=== PATIENT | female | born 1950 | race Caucasian/White ===

== ENCOUNTER → 2018-07-26 09:18 | Outpatient (CLI) | payer OTHER ==
[~2018-07-26 09:18] MED LIST: AMOXICILLIN875 MG PO; ANTIVERT12.5 MG PO; CEFOXITIN IV; FIORICET TABLET1 TAB PO; ISORDIL10 MG PO; METOCLOPRAMIDE10 MG PO; TAGAMET300 MG PO; VASOTEC10 MG NGT
== END | disposition home or self-care (01) ==
LOC: LAB 09:18
DX: R10.84 Generalized abdominal pain (principal); Z51.81 Encounter for therapeutic drug level monitoring

== ENCOUNTER 2018-07-30 07:46 | Outpatient (CLI) | payer OTHER | END 2018-07-30 07:55 | disposition home or self-care (01) | LOC: TOM 07:46 | DX: R10.84 Generalized abdominal pain (principal) | CPT/HCPCS: 74177; Q9965 ==

== ENCOUNTER 2019-05-30 08:41 | Outpatient (CLI) | payer OTHER | END 2019-05-30 08:43 | disposition home or self-care (01) | LOC: NUCLEAR 08:41 | DX: M81.0 Age-related osteoporosis without current pathological fracture (principal) ==

== ENCOUNTER 2019-10-20 18:29 | Emergency (ER) | payer OTHER ==
[~2019-10-20] VITALS: Ht 160 cm; Wt 63.5 kg
[2019-10-20] MEDS ORDERED: ADULT LOW DOSE81 M1 PO (19:18)
[2019-10-20] MEDS ORDERED: LANTUS SOL100 UNIT/1 SQ (19:18)
== END 2019-10-20 20:58 | disposition home or self-care (01) ==
LOC: ER 18:29
DX: S20.222A Contusion of left back wall of thorax, initial encounter (principal); M54.89 Other dorsalgia; W10.8XXA Fall (on) (from) other stairs and steps, initial encounter; Y93.89 Activity, other specified; Y92.019 Unspecified place in single-family (private) house as the place of occurrence of the external cause; Y99.8 Other external cause status

== ENCOUNTER 2020-10-05 08:41 | Outpatient (CLI) | payer OTHER ==
[~2020-10-05 08:41] MED LIST changes: +ADULT LOW DOSE81 M1 PO; +LANTUS SOL100 UNIT/1 SQ
== END 2020-10-05 08:47 | disposition home or self-care (01) ==
LOC: RAD 08:41
PROVIDERS: ATTEND Specialist
DX: R07.89 Other chest pain (principal)

== ENCOUNTER 2020-10-14 12:18 | Outpatient (CLI) | payer OTHER | END 2020-10-14 12:32 | disposition home or self-care (01) | LOC: MAMO-SONO 12:18 | PROVIDERS: ATTEND Internal Medicine Cardiovascular Disease | DX: R92.1 Mammographic calcification found on diagnostic imaging of breast (principal); N64.59 Other signs and symptoms in breast; Z12.31 Encounter for screening mammogram for malignant neoplasm of breast ==

== ENCOUNTER → 2021-02-11 | Outpatient (CLI) | payer OTHER | END | disposition home or self-care (01) | LOC: LAB 06:18 | PROVIDERS: ATTEND Specialist | DX: E11.65 Type 2 diabetes mellitus with hyperglycemia (principal); E11.21 Type 2 diabetes mellitus with diabetic nephropathy; N25.81 Secondary hyperparathyroidism of renal origin ==

== ENCOUNTER → 2021-02-14 07:49 | Outpatient (CLI) | payer OTHER | END | disposition home or self-care (01) | LOC: LAB 07:49 | PROVIDERS: ATTEND Specialist | DX: E11.65 Type 2 diabetes mellitus with hyperglycemia (principal); E11.21 Type 2 diabetes mellitus with diabetic nephropathy; N25.81 Secondary hyperparathyroidism of renal origin ==

== ENCOUNTER 2021-02-14 08:12 | Outpatient (CLI) | payer OTHER | END 2021-02-14 08:16 | disposition home or self-care (01) | LOC: TOM 08:12 | PROVIDERS: ATTEND Specialist | DX: K57.32 Diverticulitis of large intestine without perforation or abscess without bleeding (principal) ==

== ENCOUNTER 2021-03-28 08:30 | Outpatient (CLI) | payer OTHER | END 2021-03-28 08:31 | disposition home or self-care (01) | LOC: NUCLEAR 08:30 | PROVIDERS: ATTEND Specialist | DX: D44.2 Neoplasm of uncertain behavior of parathyroid gland (principal) | CPT/HCPCS: 78070; A9500 ==

== ENCOUNTER 2021-05-02 07:56 | Outpatient (CLI) | payer OTHER | END 2021-05-02 13:53 | disposition home or self-care (01) | LOC: LAB 07:56 | PROVIDERS: ATTEND Specialist | DX: E11.65 Type 2 diabetes mellitus with hyperglycemia (principal); E11.21 Type 2 diabetes mellitus with diabetic nephropathy; D64.9 Anemia, unspecified ==

== ENCOUNTER → 2021-05-04 08:55 | Outpatient (CLI) | payer OTHER ==
[~2021-05-04 08:55] MED LIST changes: +ADULT LOW DOSE81 M1; +ALENDRONATE SOD70 MG; +AMLODIPINE BESY10 MG; +ATORVASTATIN CA20 MG; +CANDESARTAN CIL32 MG; +GABAPENTIN100 M2; +GLIMEPIRIDE4 M1; +HUMALOG100 UNIT/2; +HUMULIN N100 UNIT/2; +METFORMIN HCL1000 M3
== END | disposition home or self-care (01) ==
LOC: LAB 08:55
PROVIDERS: ATTEND Specialist
DX: E11.65 Type 2 diabetes mellitus with hyperglycemia (principal); E11.21 Type 2 diabetes mellitus with diabetic nephropathy; D64.9 Anemia, unspecified

== ENCOUNTER 2021-06-30 08:00 | Outpatient (CLI) | payer OTHER ==
[~2021-06-30 08:00] MED LIST changes: -ADULT LOW DOSE81 M1; -ALENDRONATE SOD70 MG; -AMLODIPINE BESY10 MG; -ATORVASTATIN CA20 MG; -CANDESARTAN CIL32 MG; -GABAPENTIN100 M2; -GLIMEPIRIDE4 M1; -HUMALOG100 UNIT/2; -HUMULIN N100 UNIT/2; -METFORMIN HCL1000 M3
== END 2021-06-30 08:30 | disposition home or self-care (01) ==
LOC: PPH VACUNA 08:00
DX: Z23 Encounter for immunization (principal)

== ENCOUNTER 2021-07-28 11:34 | Inpatient (IN) | payer OTHER ==
[~2021-07-28] VITALS: Ht 152.4 cm; Wt 63.5 kg
[2021-07-28] MEDS ORDERED: HUMALOG100 UNIT/2 (12:17)
[2021-07-29] MEDS ORDERED: ADULT LOW DOSE81 M1 (10:10)
[2021-07-29] MEDS ORDERED: GLIMEPIRIDE4 M1 (10:10)
[2021-07-29] MEDS ORDERED: CANDESARTAN CIL32 MG (10:10)
[2021-07-29] MEDS ORDERED: METFORMIN HCL1000 M3 (10:10)
[2021-07-29] MEDS ORDERED: GABAPENTIN100 M2 (10:10)
[2021-07-29] MEDS ORDERED: ATORVASTATIN CA20 MG (10:10)
[2021-07-29] MEDS ORDERED: AMLODIPINE BESY10 MG (10:10)
[2021-07-29] MEDS ORDERED: HUMULIN N100 UNIT/2 (10:11)
[2021-07-29] MEDS ORDERED: ALENDRONATE SOD70 MG (10:11)
== END 2021-08-03 16:00 | DRG 202 ==
LOC: ER 11:34 → MEDJ 18:13
PROVIDERS: ADMIT Specialist; ATTEND Specialist
DX: J45.902 Unspecified asthma with status asthmaticus (principal); E11.00 Type 2 diabetes mellitus with hyperosmolarity without nonketotic hyperglycemic-hyperosmolar coma (NKHHC); N17.8 Other acute kidney failure; E87.5 Hyperkalemia; E86.0 Dehydration; Z91.14 Patient's other noncompliance with medication regimen; Z20.822 Contact with and (suspected) exposure to COVID-19; Z79.4 Long term (current) use of insulin

== ENCOUNTER 2021-10-11 06:27 | Emergency (ER) | payer OTHER ==
[~2021-10-11] VITALS: Ht 160 cm; Wt 61.7 kg
[~2021-10-11 06:27] MED LIST changes: +ADULT LOW DOSE81 M1; +ALENDRONATE SOD70 MG; +AMLODIPINE BESY10 MG; +ATORVASTATIN CA20 MG; +CANDESARTAN CIL32 MG; +GABAPENTIN100 M2; +GLIMEPIRIDE4 M1; +HUMALOG100 UNIT/2; +HUMULIN N100 UNIT/2; +METFORMIN HCL1000 M3
== END 2021-10-11 10:07 | disposition home or self-care (01) ==
LOC: ER 06:27
DX: G89.11 Acute pain due to trauma (principal); M25.561 Pain in right knee; M25.551 Pain in right hip; R10.2 Pelvic and perineal pain

== ENCOUNTER 2021-11-14 09:50 | Outpatient (CLI) | payer OTHER | END 2021-11-14 09:52 | disposition home or self-care (01) | LOC: RAD 09:50 | PROVIDERS: ATTEND Internal Medicine Pulmonary Disease | DX: J45.909 Unspecified asthma, uncomplicated (principal); R06.02 Shortness of breath ==

== ENCOUNTER 2021-11-23 11:20 | Emergency (ER) | payer OTHER ==
[~2021-11-23] VITALS: Ht 154.9 cm; Wt 63.5 kg
[2021-11-23] MEDS ORDERED: HUMULIN 70100 UNIT/2 (11:32)
[2021-11-23] MEDS ORDERED: GLIPIZIDE XL10 MG PO (11:32)
[2021-11-23] MEDS ORDERED: NORFLEX100MG PO (12:43)
[2021-11-23] MEDS ORDERED: DICLOFENAC SODI50 MG PO (12:43)
== END 2021-11-23 13:21 | disposition home or self-care (01) ==
LOC: ER 11:20
DX: M54.59 Other low back pain (principal)

== ENCOUNTER 2022-02-14 12:53 | Outpatient (CLI) | payer OTHER ==
[~2022-02-14 12:53] MED LIST changes: +DICLOFENAC SODI50 MG PO; +GLIPIZIDE XL10 MG PO; +HUMULIN 70100 UNIT/2; +NORFLEX100MG PO
== END 2022-02-14 13:06 | disposition home or self-care (01) ==
LOC: SONOGRAMA 12:53
PROVIDERS: ATTEND Otolaryngology
DX: E21.0 Primary hyperparathyroidism (principal)

== ENCOUNTER 2022-02-22 08:00 | Outpatient (CLI) | payer OTHER | END 2022-02-22 08:30 | disposition home or self-care (01) | LOC: PPH VACUNA 08:00 | PROVIDERS: ATTEND Emergency Medicine Pediatric Emergency Medicine | DX: Z23 Encounter for immunization (principal) ==

== ENCOUNTER 2022-02-22 08:20 | Outpatient (CLI) | payer OTHER | END 2022-02-22 08:21 | disposition home or self-care (01) | LOC: LAB 08:20 | PROVIDERS: ATTEND Internal Medicine Pulmonary Disease | DX: R05.9 Cough, unspecified (principal); R06.02 Shortness of breath; R50.9 Fever, unspecified; Z20.822 Contact with and (suspected) exposure to COVID-19 ==

== ENCOUNTER 2022-03-04 10:51 | Emergency (ER) | payer OTHER ==
[~2022-03-04] VITALS: Ht 160 cm; Wt 66.2 kg
[2022-03-04] MEDS ORDERED: LANTUS SOL100 UNIT/1 SQ (11:04)
== END 2022-03-04 15:49 | disposition home or self-care (01) ==
LOC: ER 10:51
DX: N39.0 Urinary tract infection, site not specified (principal); I10 Essential (primary) hypertension; E03.9 Hypothyroidism, unspecified; E11.9 Type 2 diabetes mellitus without complications; B96.20 Unspecified Escherichia coli [E. coli] as the cause of diseases classified elsewhere; Z79.4 Long term (current) use of insulin; Z79.82 Long term (current) use of aspirin

== ENCOUNTER 2022-03-08 09:11 | Outpatient (CLI) | payer OTHER | END 2022-03-08 09:19 | disposition home or self-care (01) | LOC: LAB 09:11 | PROVIDERS: ATTEND Internal Medicine Pulmonary Disease | DX: R05.9 Cough, unspecified (principal); R06.02 Shortness of breath; R50.9 Fever, unspecified; Z20.822 Contact with and (suspected) exposure to COVID-19 ==

== ENCOUNTER 2022-03-10 10:14 | Outpatient (CLI) | payer OTHER | END 2022-03-10 10:24 | disposition home or self-care (01) | LOC: LAB 10:14 | PROVIDERS: ATTEND Otolaryngology | DX: E04.9 Nontoxic goiter, unspecified (principal); I10 Essential (primary) hypertension; J30.9 Allergic rhinitis, unspecified ==

== ENCOUNTER 2022-04-04 08:00 | Outpatient (CLI) | payer OTHER | END 2022-04-04 13:46 | disposition home or self-care (01) | LOC: LAB 08:00 | PROVIDERS: ATTEND Specialist | DX: E11.21 Type 2 diabetes mellitus with diabetic nephropathy (principal); E78.2 Mixed hyperlipidemia; E11.65 Type 2 diabetes mellitus with hyperglycemia; D64.9 Anemia, unspecified ==

== ENCOUNTER 2022-04-13 08:36 | Outpatient (CLI) | payer OTHER | END 2022-04-13 08:39 | disposition home or self-care (01) | LOC: SONOGRAMA 08:36 | PROVIDERS: ATTEND Pathology Anatomic Pathology & Clinical Pathology | DX: C73 Malignant neoplasm of thyroid gland (principal); E04.9 Nontoxic goiter, unspecified ==

== ENCOUNTER 2022-06-06 13:20 | Outpatient (CLI) | payer OTHER | END 2022-06-06 13:21 | disposition home or self-care (01) | LOC: MAMO-SONO 13:20 | PROVIDERS: ATTEND Specialist | DX: Z12.31 Encounter for screening mammogram for malignant neoplasm of breast (principal); N60.39 Fibrosclerosis of unspecified breast ==

== ENCOUNTER 2022-07-15 08:35 | Outpatient (CLI) | payer OTHER | END 2022-07-15 08:36 | disposition home or self-care (01) | LOC: LAB 08:35 | PROVIDERS: ATTEND Specialist | DX: E11.22 Type 2 diabetes mellitus with diabetic chronic kidney disease (principal); R80.9 Proteinuria, unspecified; E11.69 Type 2 diabetes mellitus with other specified complication; N39.9 Disorder of urinary system, unspecified; N25.81 Secondary hyperparathyroidism of renal origin; E11.21 Type 2 diabetes mellitus with diabetic nephropathy; D64.89 Other specified anemias; E03.8 Other specified hypothyroidism; R07.89 Other chest pain; N18.2 Chronic kidney disease, stage 2 (mild); Z13.220 Encounter for screening for lipoid disorders ==

== ENCOUNTER 2022-07-20 07:07 | Outpatient (CLI) | payer OTHER | END 2022-07-20 07:15 | disposition home or self-care (01) | LOC: SONOGRAMA 07:07 | PROVIDERS: ATTEND Internal Medicine Nephrology | DX: E11.22 Type 2 diabetes mellitus with diabetic chronic kidney disease (principal); N18.2 Chronic kidney disease, stage 2 (mild) ==

== ENCOUNTER 2022-07-22 08:46 | Outpatient (CLI) | payer OTHER | END 2022-07-22 09:19 | disposition home or self-care (01) | LOC: LAB 08:46 | PROVIDERS: ATTEND Internal Medicine Nephrology | DX: N18.2 Chronic kidney disease, stage 2 (mild) (principal); E11.22 Type 2 diabetes mellitus with diabetic chronic kidney disease; R80.9 Proteinuria, unspecified ==

== ENCOUNTER 2022-09-21 00:13 | Emergency (ER) | payer OTHER ==
[~2022-09-21] VITALS: Ht 160 cm; Wt 59.9 kg
[2022-09-21] MEDS ORDERED: DICLOFENAC SODI75 MG PO (09:34)
== END 2022-09-21 12:02 | disposition home or self-care (01) ==
LOC: ER 00:13
DX: M25.552 Pain in left hip (principal); M25.562 Pain in left knee; M25.572 Pain in left ankle and joints of left foot

== ENCOUNTER 2022-11-24 05:40 | Day surgery (SDC) | payer OTHER ==
[~2022-11-24] VITALS: Ht 160 cm; Wt 61.7 kg
[~2022-11-24 05:40] MED LIST changes: +DICLOFENAC SODI75 MG PO
== END 2022-11-24 14:40 | disposition home or self-care (01) ==
LOC: CIR.AMB 05:40
PROVIDERS: ATTEND Otolaryngology
DX: E04.1 Nontoxic single thyroid nodule (principal); I10 Essential (primary) hypertension; E11.9 Type 2 diabetes mellitus without complications; Z79.84 Long term (current) use of oral hypoglycemic drugs; Z79.4 Long term (current) use of insulin

== ENCOUNTER 2023-01-11 07:44 | Outpatient (CLI) | payer OTHER | END 2023-01-11 07:50 | disposition home or self-care (01) | LOC: RAD 07:44 | PROVIDERS: ATTEND Specialist | DX: J45.991 Cough variant asthma (principal) ==

== ENCOUNTER 2023-01-22 07:09 | Outpatient (CLI) | payer OTHER | END 2023-01-22 07:11 | disposition home or self-care (01) | LOC: LAB 07:09 | PROVIDERS: ATTEND Specialist | DX: D64.89 Other specified anemias (principal); N25.81 Secondary hyperparathyroidism of renal origin; E11.69 Type 2 diabetes mellitus with other specified complication; E03.8 Other specified hypothyroidism; Z13.220 Encounter for screening for lipoid disorders; M00.80 Arthritis due to other bacteria, unspecified joint; E11.21 Type 2 diabetes mellitus with diabetic nephropathy; R19.5 Other fecal abnormalities; N39.9 Disorder of urinary system, unspecified ==

== ENCOUNTER 2023-04-16 06:51 | Outpatient (CLI) | payer OTHER ==
[2023-04-16] MEDS ORDERED: ATACAND HCT 321 EAC1 (07:58)
[2023-04-16] MEDS ORDERED: TOPROL XL50 M1 (07:58)
[2023-04-16] MEDS ORDERED: FARXIGA10 MG (07:59)
[2023-04-16] MEDS ORDERED: CARDURA XL4 MG (08:00)
[2023-04-16] MEDS ORDERED: GLIMEPIRIDE4 MG (08:00)
== END 2023-04-16 06:54 | disposition home or self-care (01) ==
LOC: LAB 06:51
PROVIDERS: ATTEND Internal Medicine Pulmonary Disease
DX: R05.8 Other specified cough (principal); R06.02 Shortness of breath; R50.9 Fever, unspecified; Z20.822 Contact with and (suspected) exposure to COVID-19

== ENCOUNTER 2023-04-16 07:38 | Emergency (ER) | payer OTHER ==
[~2023-04-16] VITALS: Ht 160 cm; Wt 63.5 kg
[2023-04-16] MEDS ORDERED: ATACAND HCT 321 EAC1 (07:58)
[2023-04-16] MEDS ORDERED: TOPROL XL50 M1 (07:58)
[2023-04-16] MEDS ORDERED: FARXIGA10 MG (07:59)
[2023-04-16] MEDS ORDERED: GLIMEPIRIDE4 MG (08:00)
[2023-04-16] MEDS ORDERED: CARDURA XL4 MG (08:00)
== END 2023-04-16 11:35 | disposition home or self-care (01) ==
LOC: ER 07:38
DX: S83.8X1A Sprain of other specified parts of right knee, initial encounter (principal); M12.531 Traumatic arthropathy, right wrist; W18.39XA Other fall on same level, initial encounter; Y93.89 Activity, other specified; Y92.89 Other specified places as the place of occurrence of the external cause; Y99.8 Other external cause status; I10 Essential (primary) hypertension; E03.8 Other specified hypothyroidism; E11.9 Type 2 diabetes mellitus without complications; Z79.4 Long term (current) use of insulin

== ENCOUNTER 2023-05-14 07:36 | Outpatient (CLI) | payer OTHER ==
[~2023-05-14 07:36] MED LIST changes: +ATACAND HCT 321 EAC1; +CARDURA XL4 MG; +FARXIGA10 MG; +GLIMEPIRIDE4 MG; +TOPROL XL50 M1
== END 2023-05-14 07:39 | disposition home or self-care (01) ==
LOC: LAB 07:36
PROVIDERS: ATTEND Specialist
DX: E11.69 Type 2 diabetes mellitus with other specified complication (principal); N39.9 Disorder of urinary system, unspecified; E11.21 Type 2 diabetes mellitus with diabetic nephropathy; Z13.220 Encounter for screening for lipoid disorders; E78.5 Hyperlipidemia, unspecified; I10 Essential (primary) hypertension; E03.8 Other specified hypothyroidism

== ENCOUNTER → 2023-05-18 | Outpatient (CLI) | payer OTHER | END | disposition home or self-care (01) | LOC: SONOGRAMA 07:32 | PROVIDERS: ATTEND Internal Medicine | DX: E04.2 Nontoxic multinodular goiter (principal) ==

== ENCOUNTER 2023-08-28 08:50 | Outpatient (CLI) | payer OTHER | END 2023-08-28 08:59 | disposition home or self-care (01) | LOC: RAD 08:50 | PROVIDERS: ATTEND Internal Medicine | DX: M84.341A Stress fracture, right hand, initial encounter for fracture (principal) ==

== ENCOUNTER 2023-10-02 07:45 | Outpatient (CLI) | payer OTHER ==
[2023-10-02 08:36] LABS: URINE APPEARANCE Cloudy; URINE BILIRRUBIN Negative (NEGATIVE); URINE BLOOD Negative; URINE COLOR Yellow; URINE LEUKOCYTE Small; URINE NITRATE Negative; URINE PROTEIN Trace (NEGATIVE); URINE UROBILINOGEN 0.2 E.U./dl
[2023-10-02 08:40] LABS: URINE BACTERIA 4358.2 uL (0.0-1933); URINE RBC 25.5 uL (0.0-20.8); URINE WBC 334.5 uL (0.0-23.2)
[2023-10-02 08:45] LABS: HEMATOCRIT 38.5 % (36.0-45.00); HEMOGLOBIN 13.3 g/dL (12.0-15.00); MEAN CELL VOLUME 88.7 fL (80.00-100.00); MEAN CORPUSCULAR HEMOGLOBIN 30.5 pg (27.00-32.0); MEAN CORPUSCULAR HGB CONC 34.4 g/dl (32.0-36.0); PLATELET COUNT 243 K/uL (150-450); RED BLOOD COUNT 4.34 M/uL (4.00-6.00); RED CELL DISTRIBUTION WIDTH 13.5 % (11.5-14.5)
[2023-10-02 09:05] LABS: URINE GLUCOSE 500 MG/DL (NEGATIVE)
[2023-10-02 09:34] LABS: ALBUMIN 3.1 gm/dL (3.4-5.0); BILIRUBIN TOTAL 0.43 mg/dL (0.3-1.2); CALCIUM 9.8 mg/dL (8.5-10.1); CHOL HDL RATIO 2.6 (0-5.0); CREATININE SERUM 0.69 mg/dL (0.55-1.02); FREE TRIODOTIRONINE 2.34 pg/ml (2.18-3.98); GFR 83.63; GLOBULINA 3.6 G/DL (2.4-3.5); POTASSIUM 3.75 mEq/L (3.5-5.1); T4 FREE 0.99 NG/ML (0.76-1.46); TOTAL PROTEIN 6.7 gm/dL (6.4-8.2); TSH 2.68 uIU/mL (0.358-3.74)
[2023-10-02 09:43] LABS: C-REACTIVE PROTEIN 0.78 MG/DL (0.00-0.29)
== END 2023-10-02 07:46 | disposition home or self-care (01) ==
LOC: LAB 07:45
PROVIDERS: ATTEND Specialist
DX: E03.8 Other specified hypothyroidism (principal); N39.9 Disorder of urinary system, unspecified; E11.21 Type 2 diabetes mellitus with diabetic nephropathy; Z13.220 Encounter for screening for lipoid disorders; R07.89 Other chest pain; E11.69 Type 2 diabetes mellitus with other specified complication; N25.81 Secondary hyperparathyroidism of renal origin; M00.80 Arthritis due to other bacteria, unspecified joint; D64.89 Other specified anemias

== ENCOUNTER → 2024-05-01 07:25 | Outpatient (CLI) | payer OTHER ==
[2024-05-01 08:07] LABS: HEMATOCRIT 37.6 % (36.0-45.00); MEAN CELL VOLUME 90.4 fL (80.00-100.00); MEAN CORPUSCULAR HEMOGLOBIN 31.2 pg (27.00-32.0); MEAN CORPUSCULAR HGB CONC 34.6 g/dl (32.0-36.0); PLATELET COUNT 232 K/uL (150-450); RED BLOOD COUNT 4.16 M/uL (4.00-6.00); RED CELL DISTRIBUTION WIDTH 13.6 % (11.5-14.5)
[2024-05-01 08:22] LABS: PH,URINE 6.5 (5.0-8.0); URINE APPEARANCE Turbid; URINE BILIRRUBIN Negative (NEGATIVE); URINE BLOOD Small; URINE COLOR Yellow; URINE LEUKOCYTE Moderate; URINE NITRATE Positive; URINE PROTEIN 30 (NEGATIVE)
[2024-05-01 08:23] LABS: URINE EPITHELIAL CELLS 182.4 uL (0.0-38.8); URINE RBC 21.3 uL (0.0-20.8)
[2024-05-01 08:34] LABS: URINE GLUCOSE >=1000 MG/DL (NEGATIVE); URINE WBC > 5548.3 uL (0.0-23.2)
[2024-05-01 08:45] LABS: ALBUMIN 3.4 gm/dL (3.4-5.0); BILIRUBIN TOTAL 0.67 mg/dL (0.3-1.2); CALCIUM 9.9 mg/dL (8.5-10.1); CREATININE SERUM 0.66 mg/dL (0.55-1.02); GFR 87.79; GLOBULINA 3.7 G/DL (2.4-3.5); POTASSIUM 4.39 mEq/L (3.5-5.1); TOTAL PROTEIN 7.1 gm/dL (6.4-8.2)
[2024-05-01 15:48] LABS: CREATININE URINE RANDOM 32.1 MG/DL (30-125)
== END | disposition home or self-care (01) ==
LOC: LAB 07:25
PROVIDERS: ATTEND Specialist
DX: D64.9 Anemia, unspecified (principal); E11.21 Type 2 diabetes mellitus with diabetic nephropathy; N20.1 Calculus of ureter; N39.9 Disorder of urinary system, unspecified

== ENCOUNTER 2024-05-09 07:57 | Emergency (ER) | payer OTHER ==
[~2024-05-09] VITALS: Ht 160 cm; Wt 66.2 kg
[2024-05-09] MEDS ORDERED: LIPITOR80 MG PO (08:14)
[2024-05-09] MEDS ORDERED: GRALISE600 MG PO (08:15)
[2024-05-09] MEDS ORDERED: GLIMEPIRIDE4 MG PO (08:16)
[2024-05-09] MEDS ORDERED: ZETIA10 MG PO (08:16)
[2024-05-09 09:20] LABS: HEMATOCRIT 39.3 % (36.0-45.00); HEMOGLOBIN 13.6 g/dL (12.0-15.00); MEAN CELL VOLUME 89.8 fL (80.00-100.00); MEAN CORPUSCULAR HEMOGLOBIN 31.2 pg (27.00-32.0); MEAN CORPUSCULAR HGB CONC 34.7 g/dl (32.0-36.0); PLATELET COUNT 285 K/uL (150-450); RED BLOOD COUNT 4.37 M/uL (4.00-6.00); RED CELL DISTRIBUTION WIDTH 13.5 % (11.5-14.5)
[2024-05-09] MEDS ORDERED: HYDROCODONE/CHLORPHEN P-STIREX 5 ML ML PO STA (10:44)
== END 2024-05-09 10:58 | disposition home or self-care (01) ==
LOC: ER 07:58
PROVIDERS: General Practice
DX: R53.81 Other malaise (principal); R05.9 Cough, unspecified; Z20.822 Contact with and (suspected) exposure to COVID-19; I10 Essential (primary) hypertension; E11.9 Type 2 diabetes mellitus without complications; Z79.4 Long term (current) use of insulin

== ENCOUNTER → 2024-05-09 11:39 | Outpatient (CLI) | payer OTHER ==
[~2024-05-09 11:39] MED LIST changes: +GLIMEPIRIDE4 MG PO; +GRALISE600 MG PO; +LIPITOR80 MG PO; +ZETIA10 MG PO
== END | disposition home or self-care (01) ==
LOC: LAB 11:39
PROVIDERS: ATTEND General Practice
DX: A49.3 Mycoplasma infection, unspecified site (principal)

== ENCOUNTER 2024-05-23 07:30 | Outpatient (CLI) | payer OTHER | END 2024-05-23 07:31 | disposition home or self-care (01) | LOC: NUCLEAR 07:30 | PROVIDERS: ATTEND Specialist | DX: D35.1 Benign neoplasm of parathyroid gland (principal) | CPT/HCPCS: 78070; A9500 ==

== ENCOUNTER 2024-06-14 08:16 | Outpatient (CLI) | payer OTHER ==
[2024-06-14 10:36] LABS: CALCIUM 9.9 mg/dL (8.5-10.1); CREATININE SERUM 0.66 mg/dL (0.55-1.02); GFR 87.79; POTASSIUM 4.49 mEq/L (3.5-5.1)
[2024-06-16 14:12] LABS: PH,URINE 5.5 (5.0-8.0); URINE APPEARANCE Cloudy; URINE BILIRRUBIN Negative (NEGATIVE); URINE BLOOD Trace; URINE COLOR Yellow; URINE KETONE Negative (NEGATIVE); URINE LEUKOCYTE Moderate; URINE NITRATE Negative; URINE UROBILINOGEN 0.2 E.U./dl
[2024-06-16 14:16] LABS: URINE BACTERIA 3904.4 uL (0.0-1933); URINE EPITHELIAL CELLS 29.8 uL (0.0-38.8); URINE RBC 4.1 uL (0.0-20.8); URINE WBC 2423.7 uL (0.0-23.2)
[2024-06-16 14:57] LABS: URINE CAST 1.22 uL (0.0-1.40); URINE GLUCOSE >=1000 MG/DL (NEGATIVE); URINE PROTEIN 100 (NEGATIVE)
== END 2024-06-14 08:23 | disposition home or self-care (01) ==
LOC: LAB 08:16
PROVIDERS: ATTEND Specialist
DX: N39.9 Disorder of urinary system, unspecified (principal); N39.0 Urinary tract infection, site not specified

== ENCOUNTER 2024-06-28 07:42 | Emergency (ER) | payer OTHER ==
[~2024-06-28] VITALS: Ht 152.4 cm; Wt 65.3 kg
[2024-06-28] MEDS ORDERED: WIXELA 250-501 EACH IH (07:53)
[2024-06-28] MEDS ORDERED: DULOXETINE HCL40 MG (07:54)
[2024-06-28] MEDS ORDERED: KETOROLAC TROMETHAMINE 15 MG VIAL IM STA (10:00)
[2024-06-28] MEDS ORDERED: KETOROLAC TROMETHAMINE 30 MG VIAL ONE (10:11)
== END 2024-06-28 11:57 | disposition home or self-care (01) ==
LOC: ER 07:44
DX: M25.522 Pain in left elbow (principal); M54.9 Dorsalgia, unspecified; T14.8XXA Other injury of unspecified body region, initial encounter; W19.XXXA Unspecified fall, initial encounter
CPT/HCPCS: 72100; 73070; 73501; 96372; 99283; J1885

== ENCOUNTER 2024-08-25 05:02 | Emergency (ER) | payer OTHER ==
[~2024-08-25] VITALS: Ht 160 cm; Wt 66.2 kg
[~2024-08-25 05:02] MED LIST changes: +DULOXETINE HCL40 MG; +WIXELA 250-501 EACH IH
[2024-08-25] MEDS ORDERED: ATORVASTATIN CA80 MG PO (05:09)
[2024-08-25] MEDS ORDERED: GLIMEPIRIDE4 M1 PO (05:09)
[2024-08-25] MEDS ORDERED: DULOXETINE HCL30 MG PO (05:09)
[2024-08-25 08:27] LABS: HEMATOCRIT 44.5 % (36.0-45.00); HEMOGLOBIN 15.4 g/dL (12.0-15.00); MEAN CORPUSCULAR HEMOGLOBIN 31.2 pg (27.00-32.0); MEAN CORPUSCULAR HGB CONC 34.7 g/dl (32.0-36.0); PLATELET COUNT 238 K/uL (150-450); RED BLOOD COUNT 4.94 M/uL (4.00-6.00); RED CELL DISTRIBUTION WIDTH 13.4 % (11.5-14.5)
[2024-08-25 09:04] LABS: ALBUMIN 3.4 gm/dL (3.4-5.0); BILIRUBIN TOTAL 0.64 mg/dL (0.3-1.2); CALCIUM 10.5 mg/dL (8.5-10.1); CREATININE SERUM 0.62 mg/dL (0.55-1.02); GFR 94.35; GLOBULINA 4.2 G/DL (2.4-3.5); POTASSIUM 4.07 mEq/L (3.5-5.1); TOTAL PROTEIN 7.6 gm/dL (6.4-8.2)
[2024-08-25 10:09] LABS: PARTIAL THROMBOPLASTIN TIME 23.9 SECONDS (22.0-34.0); PROTHROMBIN TIME 10.9 SECONDS (9.0-11.5)
[2024-08-25 13:26] LABS: URINE APPEARANCE Turbid; URINE BILIRRUBIN Negative (NEGATIVE); URINE BLOOD Small; URINE COLOR Yellow; URINE KETONE Trace (NEGATIVE); URINE LEUKOCYTE Moderate; URINE NITRATE Positive
[2024-08-25 13:30] LABS: URINE CAST 7.84 uL (0.0-1.40); URINE EPITHELIAL CELLS 20.5 uL (0.0-38.8); URINE RBC 6.4 uL (0.0-20.8)
[2024-08-25 13:56] LABS: URINE BACTERIA > 9821.5 uL (0.0-1933); URINE GLUCOSE 100 MG/DL (NEGATIVE); URINE PROTEIN 300 (NEGATIVE); URINE WBC > 5548.3 uL (0.0-23.2)
== END 2024-08-25 13:53 | disposition home or self-care (01) ==
LOC: ER 05:04
PROVIDERS: General Practice
DX: R53.81 Other malaise (principal); R42 Dizziness and giddiness; R47.01 Aphasia; I10 Essential (primary) hypertension; E11.9 Type 2 diabetes mellitus without complications; Z79.4 Long term (current) use of insulin

== ENCOUNTER → 2024-09-12 10:59 | Outpatient (CLI) | payer OTHER ==
[~2024-09-12 10:59] MED LIST changes: +ATORVASTATIN CA80 MG PO; +DULOXETINE HCL30 MG PO; +GLIMEPIRIDE4 M1 PO
[2024-09-12 11:43] LABS: HEMOGLOBIN 13.3 g/dL (12.0-15.00); MEAN CELL VOLUME 88.9 fL (80.00-100.00); MEAN CORPUSCULAR HEMOGLOBIN 30.3 pg (27.00-32.0); MEAN CORPUSCULAR HGB CONC 34.1 g/dl (32.0-36.0); PLATELET COUNT 289 K/uL (150-450); RED BLOOD COUNT 4.39 M/uL (4.00-6.00); RED CELL DISTRIBUTION WIDTH 13.1 % (11.5-14.5)
[2024-09-12 12:07] LABS: ALBUMIN 3.2 gm/dL (3.4-5.0); BILIRUBIN TOTAL 0.69 mg/dL (0.3-1.2); CALCIUM 9.8 mg/dL (8.5-10.1); CREATININE SERUM 0.66 mg/dL (0.55-1.02); GFR 87.79; GLOBULINA 3.5 G/DL (2.4-3.5); POTASSIUM 4.3 mEq/L (3.5-5.1); TOTAL PROTEIN 6.7 gm/dL (6.4-8.2)
[2024-09-12 12:12] LABS: INR 0.96; PARTIAL THROMBOPLASTIN TIME 23.5 SECONDS (22.0-34.0); PROTHROMBIN TIME 10.5 SECONDS (9.0-11.5)
== END | disposition home or self-care (01) ==
LOC: LAB 10:59
PROVIDERS: ATTEND Ophthalmology
DX: D68.8 Other specified coagulation defects (principal); H25.013 Cortical age-related cataract, bilateral; I10 Essential (primary) hypertension; Z01.811 Encounter for preprocedural respiratory examination

== ENCOUNTER 2024-09-26 07:14 | Outpatient (CLI) | payer OTHER | END 2024-09-26 07:15 | disposition home or self-care (01) | LOC: NUCLEAR 07:14 | PROVIDERS: ATTEND Internal Medicine | DX: I20.9 Angina pectoris, unspecified (principal) | CPT/HCPCS: 78452; 93017; A9500 ==

== ENCOUNTER 2024-10-16 12:31 | Outpatient (CLI) | payer OTHER | END 2024-10-16 12:35 | disposition home or self-care (01) | LOC: TOM 12:31 | PROVIDERS: ATTEND Specialist | DX: J47.1 Bronchiectasis with (acute) exacerbation (principal); J47.9 Bronchiectasis, uncomplicated ==

== ENCOUNTER 2024-11-03 09:08 | Emergency (ER) | payer OTHER ==
[~2024-11-03] VITALS: Ht 160 cm; Wt 60.3 kg
[2024-11-03 11:54] LABS: HEMOGLOBIN 13.6 g/dL (12.0-15.00); MEAN CELL VOLUME 89.8 fL (80.00-100.00); MEAN CORPUSCULAR HEMOGLOBIN 30.6 pg (27.00-32.0); MEAN CORPUSCULAR HGB CONC 34.1 g/dl (32.0-36.0); PLATELET COUNT 255 K/uL (150-450); RED BLOOD COUNT 4.46 M/uL (4.00-6.00)
[2024-11-03 12:14] LABS: INR 1.01; PARTIAL THROMBOPLASTIN TIME 22.7 SECONDS (22.0-34.0)
[2024-11-03 12:19] LABS: ALBUMIN 3.7 gm/dL (3.4-5.0); BILIRUBIN TOTAL 0.53 mg/dL (0.3-1.2); CALCIUM 10.6 mg/dL (8.5-10.1); GFR 54.35; POTASSIUM 3.47 mEq/L (3.5-5.1); TOTAL PROTEIN 7.7 gm/dL (6.4-8.2)
== END 2024-11-03 13:31 | disposition home or self-care (01) ==
LOC: ER 09:10
PROVIDERS: General Practice
DX: R53.81 Other malaise (principal); R51.9 Headache, unspecified; Z20.822 Contact with and (suspected) exposure to COVID-19; I10 Essential (primary) hypertension; E11.9 Type 2 diabetes mellitus without complications; Z79.4 Long term (current) use of insulin

== ENCOUNTER 2024-12-22 06:50 | Outpatient (CLI) | payer OTHER ==
[2024-12-22 07:59] LABS: HEMATOCRIT 41.9 % (36.0-45.00); HEMOGLOBIN 14.6 g/dL (12.0-15.00); MEAN CELL VOLUME 88.1 fL (80.00-100.00); MEAN CORPUSCULAR HEMOGLOBIN 30.7 pg (27.00-32.0); MEAN CORPUSCULAR HGB CONC 34.8 g/dl (32.0-36.0); PLATELET COUNT 275 K/uL (150-450); RED BLOOD COUNT 4.76 M/uL (4.00-6.00); RED CELL DISTRIBUTION WIDTH 13.9 % (11.5-14.5)
[2024-12-22 09:10] LABS: ALBUMIN 3.3 gm/dL (3.4-5.0); BILIRUBIN TOTAL 0.6 mg/dL (0.3-1.2); CALCIUM 10.1 mg/dL (8.5-10.1); CHOL HDL RATIO 3.3 (0-5.0); CREATININE SERUM 0.71 mg/dL (0.55-1.02); FREE TRIODOTIRONINE 2.57 pg/ml (2.18-3.98); GFR 80.69; GLOBULINA 3.6 G/DL (2.4-3.5); POTASSIUM 3.52 mEq/L (3.5-5.1); T4 FREE 0.94 NG/ML (0.76-1.46); T4 TOTAL 8.45 UG/DL (4.8-13.9); TOTAL PROTEIN 6.9 gm/dL (6.4-8.2)
[2024-12-22 14:02] LABS: TSH 5.03 uIU/mL (0.358-3.74)
== END 2024-12-22 06:55 | disposition home or self-care (01) ==
LOC: LAB 06:50
PROVIDERS: ATTEND Specialist
DX: E11.21 Type 2 diabetes mellitus with diabetic nephropathy (principal); E11.69 Type 2 diabetes mellitus with other specified complication; D64.89 Other specified anemias; K92.2 Gastrointestinal hemorrhage, unspecified; Z12.11 Encounter for screening for malignant neoplasm of colon; E03.8 Other specified hypothyroidism; Z13.220 Encounter for screening for lipoid disorders; N39.9 Disorder of urinary system, unspecified

== ENCOUNTER 2025-02-10 13:52 | Outpatient (CLI) | payer OTHER | END 2025-02-10 13:54 | disposition home or self-care (01) | LOC: RAD 13:52 | PROVIDERS: ATTEND Ophthalmology | DX: Z01.811 Encounter for preprocedural respiratory examination (principal) ==

== ENCOUNTER 2025-05-04 15:12 | Inpatient (IN) | payer OTHER ==
[~2025-05-04] VITALS: Ht 165.1 cm; Wt 65.8 kg
--- NOTE | 2025-05-04 15:28 | NUR ---
SE RECIBE PTE ALERTA Y ORIENTADA EN AMBULACIA LA CUAL REFIERE VENIR POR DEBILIDAD, PICOR EN AREA DEL ABDOMEN Y ESPALDA Y PRESION JENNIFRE. SE MIDEN S/V A PTE, PTE CON BP 210/100MMHG, SE REALIZA EKG A PTE. SE UBICA A LA MISMA EN UNIDAD DE CRITICO.
--- NOTE | 2025-05-04 15:49 | NUR ---
SE UBICA A PACIENTE EN CAMA #1 EN UNIDAD DE CRITICO DONDE SE CONECTA A MONITOR CARDIACO Y OXIMETRIA DE PULSO CONTINUA. AL MOMENTO PACIENTE SE SOCRATES MUESTRAS DE LAB SAMANTHA ORDEN MEDICA Y SE CANALIZA CON ANGIOS #18 EN ANJU [facility]ARR[place].
[2025-05-04] MEDS ORDERED: LABETALOL HCL 20MG/4ML SYRINGE IV ONE (16:45)
[2025-05-04 16:52] LABS: BASO % 0.4 % (0.1-1.2); EOS # 0.01 (0.04-0.54); EOS % 0.1 % (0.7-7.0); LYMPH # 2.95 (1.18-3.74); LYMPH % 29.4 % (19.3-53.1); MEAN PLATELET VOLUME 9.80 fl (9.4-12.4); MONO # 0.62 (0.24-0.82); MONO % 6.2 % (4.7-12.5); NEUT # 6.41 (1.56-6.13); NEUT % 63.7 % (34.0-71.1); RED CELL DISTRIBUTION WIDTH 12.4 % (11.6-14.4)
--- NOTE | 2025-05-04 17:10 | NUR ---
SE EDUCA A PACIENTE SOBRE TRATAMIENTO MEDICO EL CUAL REFIERE ENTENDER, SE REALIZA COLECCION DE MUESTRAS SAMANTHA ORDEN MEDICA Y ADMINISTRACION DE MEDICAMENTOS. AL MOMENTO SE INSERTA SONDA URINARIA BAJO MEDIDAS ASEPTICAS.
[2025-05-04 17:12] LABS: INR 1.0
[2025-05-04 17:17] LABS: ALT/SGPT 25.0 U/L (12-78); AST/SGOT 32.0 U/L (15-37); BILIRUBIN TOTAL 0.91 mg/dL (0.3-1.2); BUN CREA RATIO 21.0 (7.0-25.0); CREATININE SERUM 0.84 mg/dL (0.55-1.02); GFR 66.28; GLOBULINA 4.5 G/DL (2.4-3.5); GLUCOSE FASTING 166.0 mg/dL (65-100); LDH 432.0 U/L (84-246); OSMOLALITY SERUM 287.0 MOSM/KG (275-295); PHOSPHOKINASE CREATININE 49.0 U/L (26-192)
[2025-05-04 17:41] LABS: URINE APPEARANCE Clear; URINE BILIRRUBIN Negative (NEGATIVE); URINE BLOOD Trace; URINE COLOR Yellow; URINE GLUCOSE Negative (NEGATIVE); URINE KETONE Negative (NEGATIVE); URINE LEUKOCYTE Large; URINE NITRATE Negative; URINE UROBILINOGEN 0.2 E.U./dl
[2025-05-04 17:45] LABS: URINE BACTERIA 496.7 uL (0.0-1933); URINE EPITHELIAL CELLS 1.5 uL (0.0-38.8); URINE RBC 6.5 uL (0.0-20.8); URINE WBC 1315.5 uL (0.0-23.2)
[2025-05-04 17:47] LABS: COVID-19 AG NEGATIVE (NEGATIVE)
[2025-05-04 17:51] LABS: URINE CAST 0.29 uL (0.0-1.40); URINE PROTEIN 100 (NEGATIVE)
[2025-05-04] MEDS ORDERED: IPRATROPIUM BROMIDE 0.5 MG/2.5 ML AMPUL.NEB IH SCH (21:10)
[2025-05-04] MEDS ORDERED: ACYCLOVIR 800 MG TABLET PO SCH (21:13)
[2025-05-04] MEDS ORDERED: OSELTAMIVIR PHOSPHATE 75 MG CAPSULE PO SCH (21:14)
[2025-05-04] MEDS ORDERED: ACETAMINOPHEN 500 MG GEL..CAP PO PRN (21:15)
[2025-05-04] MEDS ORDERED: INSULIN LISPRO 1,000 UNIT/10 ML UNITS SUBCUTANEO PRN (21:15)
[2025-05-04] MEDS ORDERED: NITROGLYCERIN IN 5 % DEXTROSE 250 ML IV SCH (21:15)
[2025-05-04] MEDS ORDERED: DEXTROSE 50 % IN WATER 0.5 G/ML DISP.SYRIN IV PRN (21:15)
[2025-05-04] MEDS ORDERED: ENOXAPARIN SODIUM 60 MG/0.6 ML SYRINGE SUBCUTANEO SCH (21:16)
[2025-05-04] MEDS ORDERED: CEFTRIAXONE SODIUM 2,000 MG in 0.9 % SODIUM CHLORIDE 100 ML IV SCH (21:16)
[2025-05-04 22:37] LABS: ABG PH 7.447 (7.35-7.45); ABG PO2 58.2 mmHg (80-100); BICARBONATE 28.9 mmol/l (23-25); o2 21 %
[2025-05-04 23:07] VITALS: BP 136/76; O2SAT 94
[2025-05-04 23:58] VITALS: BP 156/73
[2025-05-05] VITALS (24 sets, daily range): BP systolic 134–179; BP diastolic 62–83; O2SAT 92–99
[2025-05-05] MEDS ORDERED: NITROGLYCERIN IN 5 % DEXTROSE 250 ML IV SCH (07:30)
[2025-05-05 08:13] LABS: CHOL HDL RATIO 3.0 (0-5.0); HDL 45.0 mg/dl (40-60); LDL 65.0 mg/dl (0-130); TSH 1.86 uIU/mL (0.358-3.74); VLDL 26.0 (0-39)
[2025-05-05] MEDS ORDERED: FAMOTIDINE/PF 20 MG in 0.9 % SODIUM CHLORIDE 8 ML IV PUSH SCH (09:00)
[2025-05-05] MEDS ORDERED: METOPROLOL SUCCINATE 50 MG TAB.SR.24H PO SCH (09:00)
[2025-05-05] MEDS ORDERED: DEXTROSE 50 % IN WATER 0.5 G/ML VIAL IV PRN (14:00)
[2025-05-05] MEDS ORDERED: ACYCLOVIR 800 MG TABLET PO SCH ×2 (16:00)
[2025-05-05] MEDS ORDERED: GABAPENTIN 600 MG TABLET PO SCH (17:00)
[2025-05-06] VITALS (20 sets, daily range): BP systolic 119–148; BP diastolic 57–87; O2SAT 93–100
[2025-05-06 06:44] LABS: BASO % 0.4 % (0.1-1.2); EOS # 0.03 (0.04-0.54); EOS % 0.2 % (0.7-7.0); LYMPH # 3.76 (1.18-3.74); LYMPH % 28.7 % (19.3-53.1); MEAN PLATELET VOLUME 9.90 fl (9.4-12.4); MONO # 1.28 (0.24-0.82); MONO % 9.8 % (4.7-12.5); NEUT # 7.96 (1.56-6.13); NEUT % 60.6 % (34.0-71.1); RED CELL DISTRIBUTION WIDTH 12.4 % (11.6-14.4)
[2025-05-06 07:08] LABS: ALT/SGPT 17.0 U/L (12-78); AST/SGOT 17.0 U/L (15-37); BILIRUBIN TOTAL 0.74 mg/dL (0.3-1.2); BUN CREA RATIO 26.0 (7.0-25.0); CREATININE SERUM 0.95 mg/dL (0.55-1.02); GFR 57.5; GLOBULINA 3.7 G/DL (2.4-3.5); GLUCOSE FASTING 168.0 mg/dL (65-100); OSMOLALITY SERUM 280.0 MOSM/KG (275-295)
[2025-05-06] MEDS ORDERED: ACYCLOVIR 800 MG TABLET PO SCH (09:00)
[2025-05-06] MEDS ORDERED: LOSARTAN POTASSIUM 25 MG TABLET PO SCH (09:00)
[2025-05-06] MEDS ORDERED: AMIODARONE HCL 450 MG in DEXTROSE 5 % IN WATER 250 ML IV SCH (09:15)
[2025-05-06] MEDS ORDERED: SODIUM PHOS,M-BASIC-D-BASIC 3 MMOL/ML VIAL IV ONE (12:00)
[2025-05-06] MEDS ORDERED: CEFTRIAXONE SODIUM 2,000 MG VIAL IV SCH (17:00)
[2025-05-07] VITALS (13 sets, daily range): BP systolic 123–193; BP diastolic 46–81; O2SAT 89–99
[2025-05-07 06:47] LABS: BASO % 0.3 % (0.1-1.2); EOS # 0.01 (0.04-0.54); EOS % 0.1 % (0.7-7.0); LYMPH # 3.05 (1.18-3.74); LYMPH % 24.8 % (19.3-53.1); MEAN PLATELET VOLUME 9.70 fl (9.4-12.4); MONO # 1.16 (0.24-0.82); MONO % 9.4 % (4.7-12.5); NEUT # 7.99 (1.56-6.13); NEUT % 65.2 % (34.0-71.1); RED CELL DISTRIBUTION WIDTH 12.4 % (11.6-14.4)
[2025-05-07 07:32] LABS: ALT/SGPT 18.0 U/L (12-78); AST/SGOT 23.0 U/L (15-37); BILIRUBIN TOTAL 0.65 mg/dL (0.3-1.2); BUN CREA RATIO 32.0 (7.0-25.0); CREATININE SERUM 0.95 mg/dL (0.55-1.02); GFR 57.5; GLOBULINA 3.9 G/DL (2.4-3.5); GLUCOSE FASTING 165.0 mg/dL (65-100); OSMOLALITY SERUM 280.0 MOSM/KG (275-295)
[2025-05-07] MEDS ORDERED: MEROPENEM 500 MG/VIAL VIAL IV SCH (08:00)
[2025-05-07] MEDS ORDERED: AMIODARONE HCL 200 MG TABLET PO SCH (09:00)
[2025-05-07] MEDS ORDERED: levoFLOXacin IN DEXTROSE 5 % 150 ML IV SCH (11:53)
[2025-05-07] MEDS ORDERED: hydrALAZINE HCL 20 MG VIAL IV PRN (12:30)
[2025-05-07] MEDS ORDERED: LOSARTAN POTASSIUM 50 MG TABLET PO SCH (12:39)
[2025-05-07] MEDS ORDERED: POTASSIUM CHLORIDE IN WATER 100 ML IV NR (12:40)
[2025-05-07] MEDS ORDERED: POTASSIUM BICARBONATE/CIT AC 25 MEQ TABLET.EFF PO NR (13:35)
[2025-05-07] MEDS ORDERED: AMLODIPINE BESYLATE 5 MG TABLET PO NR (14:15)
[2025-05-08] VITALS (8 sets, daily range): BP systolic 102–141; BP diastolic 56–70; O2SAT 90–97
[2025-05-08] MEDS ORDERED: AMLODIPINE BESYLATE 5 MG TABLET PO SCH (09:00)
[2025-05-08] MEDS ORDERED: BENZONATATE 100 MG CAPSULE PO SCH (17:00)
[2025-05-09] VITALS (7 sets, daily range): BP systolic 131–158; BP diastolic 71–84; O2SAT 92–98
[2025-05-09 08:06] LABS: BASO % 0.2 % (0.1-1.2); EOS # 0.05 (0.04-0.54); EOS % 0.4 % (0.7-7.0); LYMPH # 2.81 (1.18-3.74); LYMPH % 22.8 % (19.3-53.1); MEAN PLATELET VOLUME 10.60 fl (9.4-12.4); MONO # 0.94 (0.24-0.82); MONO % 7.6 % (4.7-12.5); NEUT # 8.46 (1.56-6.13); NEUT % 68.6 % (34.0-71.1); RED CELL DISTRIBUTION WIDTH 12.3 % (11.6-14.4)
[2025-05-09 08:31] LABS: ALT/SGPT 19.0 U/L (12-78); AST/SGOT 33.0 U/L (15-37); BILIRUBIN TOTAL 0.53 mg/dL (0.3-1.2); BUN CREA RATIO 38.0 (7.0-25.0); CREATININE SERUM 0.91 mg/dL (0.55-1.02); GFR 60.43; GLOBULINA 4.2 G/DL (2.4-3.5); GLUCOSE FASTING 151.0 mg/dL (65-100); OSMOLALITY SERUM 281.0 MOSM/KG (275-295)
[2025-05-09] MEDS ORDERED: AMLODIPINE BESYLATE 2.5 MG TABLET PO SCH (21:15)
[2025-05-10] VITALS (9 sets, daily range): BP systolic 113–147; BP diastolic 65–78; O2SAT 90–97
[2025-05-10] MEDS ORDERED: IPRATROPIUM BROMIDE 0.5 MG/2.5 ML AMPUL.NEB IH SCH
[2025-05-10] MEDS ORDERED: PANTOPRAZOLE SODIUM 40 MG TABLET.DR PO SCH (09:00)
[2025-05-10] MEDS ORDERED: BENZONATATE 200 MG CAPSULE PO SCH (13:00)
[2025-05-10 14:19] LABS: BASO % 0.3 % (0.1-1.2); EOS # 0.05 (0.04-0.54); EOS % 0.4 % (0.7-7.0); LYMPH # 2.20 (1.18-3.74); LYMPH % 18.9 % (19.3-53.1); MEAN PLATELET VOLUME 9.60 fl (9.4-12.4); MONO # 0.84 (0.24-0.82); MONO % 7.2 % (4.7-12.5); NEUT # 8.46 (1.56-6.13); NEUT % 72.9 % (34.0-71.1); RED CELL DISTRIBUTION WIDTH 12.2 % (11.6-14.4)
[2025-05-10 14:41] LABS: ALT/SGPT 17.0 U/L (12-78); AST/SGOT 23.0 U/L (15-37); BILIRUBIN TOTAL 0.43 mg/dL (0.3-1.2); BUN CREA RATIO 42.0 (7.0-25.0); CREATININE SERUM 0.79 mg/dL (0.55-1.02); GFR 71.14; GLOBULINA 4.3 G/DL (2.4-3.5); OSMOLALITY SERUM 285.0 MOSM/KG (275-295)
[2025-05-10 14:42] LABS: GLUCOSE FASTING 206.0 mg/dL (65-100)
[2025-05-11] VITALS (8 sets, daily range): BP systolic 131–184; BP diastolic 65–79; O2SAT 83–95
[2025-05-11 06:30] LABS: BASO % 0.4 % (0.1-1.2); EOS # 0.10 (0.04-0.54); EOS % 0.8 % (0.7-7.0); LYMPH # 3.58 (1.18-3.74); LYMPH % 27.7 % (19.3-53.1); MEAN PLATELET VOLUME 10.20 fl (9.4-12.4); MONO # 0.95 (0.24-0.82); MONO % 7.4 % (4.7-12.5); NEUT # 8.20 (1.56-6.13); NEUT % 63.4 % (34.0-71.1); RED CELL DISTRIBUTION WIDTH 12.1 % (11.6-14.4)
[2025-05-11 06:50] LABS: ALT/SGPT 18.0 U/L (12-78); AST/SGOT 22.0 U/L (15-37); BILIRUBIN TOTAL 0.51 mg/dL (0.3-1.2); BUN CREA RATIO 42.0 (7.0-25.0); CREATININE SERUM 0.65 mg/dL (0.55-1.02); GFR 89.1; GLOBULINA 4.7 G/DL (2.4-3.5); GLUCOSE FASTING 133.0 mg/dL (65-100); OSMOLALITY SERUM 281.0 MOSM/KG (275-295)
[2025-05-11] MEDS ORDERED: AMLODIPINE BESYLATE 5 MG TABLET PO STA (10:42)
[2025-05-11] MEDS ORDERED: RINGERS SOLUTION,LACTATED 1,000 ML IV SCH (10:45)
[2025-05-11] MEDS ORDERED: AMLODIPINE BESYLATE 5 MG TABLET PO SCH (19:56)
[2025-05-12] VITALS (8 sets, daily range): BP systolic 130–156; BP diastolic 76–77; O2SAT 90–97
[2025-05-12 05:49] LABS: BASO % 0.3 % (0.1-1.2); EOS # 0.11 (0.04-0.54); EOS % 1.0 % (0.7-7.0); LYMPH # 2.71 (1.18-3.74); LYMPH % 23.6 % (19.3-53.1); MEAN PLATELET VOLUME 9.60 fl (9.4-12.4); MONO # 0.82 (0.24-0.82); MONO % 7.2 % (4.7-12.5); NEUT # 7.74 (1.56-6.13); NEUT % 67.6 % (34.0-71.1); RED CELL DISTRIBUTION WIDTH 11.9 % (11.6-14.4)
[2025-05-12 07:10] LABS: ALT/SGPT 16.0 U/L (12-78); AST/SGOT 18.0 U/L (15-37); BILIRUBIN TOTAL 0.53 mg/dL (0.3-1.2); BUN CREA RATIO 29.0 (7.0-25.0); CREATININE SERUM 0.51 mg/dL (0.55-1.02); GFR 117.88; GLOBULINA 4.7 G/DL (2.4-3.5); GLUCOSE FASTING 142.0 mg/dL (65-100); OSMOLALITY SERUM 281.0 MOSM/KG (275-295)
[2025-05-12] MEDS ORDERED: AMLODIPINE BESYLATE 5 MG TABLET PO SCH (09:00)
[2025-05-12] MEDS ORDERED: AMINO ACIDS/PROTEIN HYDROLYS 30 ML BLIST.PACK PO SCH (09:00)
[2025-05-12] MEDS ORDERED: POTASSIUM PHOS,M-BASIC-D-BASIC 3 MM/ML VIAL IV SCH (13:00)
[2025-05-13] VITALS (8 sets, daily range): BP systolic 157–187; BP diastolic 69–81; O2SAT 90–98
[2025-05-13 06:17] LABS: BASO % 0.2 % (0.1-1.2); EOS # 0.15 (0.04-0.54); EOS % 1.7 % (0.7-7.0); LYMPH # 2.49 (1.18-3.74); LYMPH % 27.7 % (19.3-53.1); MEAN PLATELET VOLUME 9.60 fl (9.4-12.4); MONO # 0.68 (0.24-0.82); MONO % 7.6 % (4.7-12.5); NEUT # 5.61 (1.56-6.13); NEUT % 62.4 % (34.0-71.1); RED CELL DISTRIBUTION WIDTH 11.9 % (11.6-14.4)
[2025-05-13 07:20] LABS: ALT/SGPT 16.0 U/L (12-78); AST/SGOT 18.0 U/L (15-37); BILIRUBIN TOTAL 0.43 mg/dL (0.3-1.2); BUN CREA RATIO 36.0 (7.0-25.0); CREATININE SERUM 0.5 mg/dL (0.55-1.02); GFR 120.61; GLOBULINA 4.4 G/DL (2.4-3.5); GLUCOSE FASTING 133.0 mg/dL (65-100); OSMOLALITY SERUM 287.0 MOSM/KG (275-295)
[2025-05-13 17:37] LABS: ABG PH 7.477 (7.35-7.45); ABG PO2 70.0 mmHg (80-100); BICARBONATE 28.4 mmol/l (23-25)
[2025-05-13 18:41] LABS: o2 21 %
[2025-05-13] MEDS ORDERED: hydrALAZINE HCL 20 MG VIAL IV STA (19:48)
[2025-05-13] MEDS ORDERED: AMLODIPINE BESYLATE 5 MG TABLET PO STA (19:50)
[2025-05-14 00:48] VITALS: O2SAT 96
[2025-05-14 02:17] VITALS: BP 145/66; O2SAT 96
[2025-05-14 04:46] VITALS: O2SAT 97
[2025-05-14 04:49] VITALS: O2SAT 97
[2025-05-14 07:46] VITALS: O2SAT 91
[2025-05-14] MEDS ORDERED: LOSARTAN POTASSIUM 100 MG TABLET PO SCH (09:00)
[2025-05-14] MEDS ORDERED: LOSARTAN POTASSIUM 50 MG TABLET PO SCH (09:00)
[2025-05-14 10:37] VITALS: BP 150/65; O2SAT 96
[2025-05-14] MEDS ORDERED: GLIMEPIRIDE2 M1 PO (11:53)
[2025-05-14] MEDS ORDERED: HUMALOG KW200 UNIT/1 SUBCUTANEO (11:54)
[2025-05-14] MEDS ORDERED: LANTUS SOL100 UNIT/1 SUBCUTANEO (11:55)
[2025-05-14] MEDS ORDERED: XARELTO20 MG PO (11:55)
[2025-05-14] MEDS ORDERED: AMLODIPINE BESYL5 MG PO (11:56)
[2025-05-14] MEDS ORDERED: PROTEINEX-18 LI30 ML PO (11:56)
[2025-05-14] MEDS ORDERED: AMIODARONE HCL200 MG PO (11:56)
[2025-05-14] MEDS ORDERED: TOPROL XL50 M1 PO (11:56)
[2025-05-14] MEDS ORDERED: LOSARTAN POTAS100 MG PO (11:56)
[2025-05-14] MEDS ORDERED: FARXIGA10 MG PO (12:00)
[2025-05-14] MEDS ORDERED: DOXAZOSIN MESYLA2 MG PO (12:00)
[2025-05-14] MEDS ORDERED: AMLODIPINE BESYLATE 5 MG TABLET PO SCH (17:00)
== END 2025-05-14 12:45 | disposition home or self-care (01) | DRG 193 ==
LOC: ER 15:12 → ICU 21:23 → ICU-2 21:23 → ICU 05-05 01:52 → MEDJ 05-07 20:02
PROVIDERS: General Practice; Internal Medicine; ADMIT Internal Medicine; ATTEND Internal Medicine
PROC: BB24ZZZ Computerized Tomography (CT Scan) of Bilateral Lungs (ICD-10-PCS; 2025-05-04)
PROC: B246ZZZ Ultrasonography of Right and Left Heart (ICD-10-PCS; 2025-05-04)
PROC: 3E0F7GC Introduction of Other Therapeutic Substance into Respiratory Tract, Via Natural or Artificial Opening (ICD-10-PCS; 2025-05-04)
PROC: 4A12X4Z Monitoring of Cardiac Electrical Activity, External Approach (ICD-10-PCS; 2025-05-04)
PROC: 8E0ZXY6 Isolation (ICD-10-PCS; principal; 2025-05-05)
PROC: B54BZZZ Ultrasonography of Right Lower Extremity Veins (ICD-10-PCS; 2025-05-08)
DX: J10.1 Influenza due to other identified influenza virus with other respiratory manifestations (principal); I50.21 Acute systolic (congestive) heart failure; N39.0 Urinary tract infection, site not specified; B02.9 Zoster without complications; I48.0 Paroxysmal atrial fibrillation; I11.0 Hypertensive heart disease with heart failure; E03.9 Hypothyroidism, unspecified; E78.5 Hyperlipidemia, unspecified; E83.39 Other disorders of phosphorus metabolism; M62.81 Muscle weakness (generalized); M79.662 Pain in left lower leg; M79.661 Pain in right lower leg; B96.1 Klebsiella pneumoniae [K. pneumoniae] as the cause of diseases classified elsewhere

== ENCOUNTER 2025-05-30 19:52 | Emergency (ER) | payer OTHER ==
[~2025-05-30] VITALS: Ht 160 cm; Wt 59.0 kg
[~2025-05-30 19:52] MED LIST changes: +AMIODARONE HCL200 MG PO; +AMLODIPINE BESYL5 MG PO; +DOXAZOSIN MESYLA2 MG PO; +FARXIGA10 MG PO; +GLIMEPIRIDE2 M1 PO; +HUMALOG KW200 UNIT/1 SUBCUTANEO; +LANTUS SOL100 UNIT/1 SUBCUTANEO; +LOSARTAN POTAS100 MG PO; +PROTEINEX-18 LI30 ML PO; +TOPROL XL50 M1 PO; +XARELTO20 MG PO
[2025-05-30] MEDS ORDERED: ZETIA10 MG (22:18)
[2025-05-30] MEDS ORDERED: NORVASC2.5 M1 PO (22:18)
[2025-05-30] MEDS ORDERED: AMIODARONE HCL100 MG (22:19)
[2025-05-30 23:29] LABS: BASO % 0.5 % (0.1-1.2); EOS # 0.29 (0.04-0.54); EOS % 3.5 % (0.7-7.0); LYMPH # 2.35 (1.18-3.74); LYMPH % 28.3 % (19.3-53.1); MEAN PLATELET VOLUME 9.20 fl (9.4-12.4); MONO # 0.53 (0.24-0.82); MONO % 6.4 % (4.7-12.5); NEUT # 5.07 (1.56-6.13); NEUT % 61.1 % (34.0-71.1); RED CELL DISTRIBUTION WIDTH 12.9 % (11.6-14.4)
[2025-05-30 23:50] LABS: INR 1.08
[2025-05-31 00:03] LABS: ALT/SGPT 27.0 U/L (12-78); AST/SGOT 15.0 U/L (15-37); BILIRUBIN TOTAL 0.28 mg/dL (0.3-1.2); BUN CREA RATIO 24.0 (7.0-25.0); CREATININE SERUM 0.84 mg/dL (0.55-1.02); GFR 66.28; GLOBULINA 4.7 G/DL (2.4-3.5); GLUCOSE FASTING 241.0 mg/dL (65-100); OSMOLALITY SERUM 292.0 MOSM/KG (275-295)
[2025-05-31 00:46] LABS: URINE APPEARANCE Turbid; URINE BILIRRUBIN Negative (NEGATIVE); URINE BLOOD Small; URINE COLOR Yellow; URINE KETONE Trace (NEGATIVE); URINE LEUKOCYTE Moderate; URINE NITRATE Negative; URINE UROBILINOGEN 0.2 E.U./dl
[2025-05-31 00:50] LABS: URINE EPITHELIAL CELLS 19.0 uL (0.0-38.8); URINE RBC 13.4 uL (0.0-20.8)
[2025-05-31 01:01] LABS: TYPE CELLS SQUAMOUS; URINE CAST 0.43 uL (0.0-1.40); URINE GLUCOSE 500 MG/DL (NEGATIVE); URINE PROTEIN 100 (NEGATIVE); URINE WBC > 5548.3 uL (0.0-23.2)
[2025-05-31 01:02] LABS: URINE BACTERIA > 9821.5 uL (0.0-1933)
== END 2025-05-31 02:47 | disposition home or self-care (01) ==
LOC: ER 19:52
PROVIDERS: Preventive Medicine Public Health & General Preventive Medicine
DX: H81.10 Benign paroxysmal vertigo, unspecified ear (principal); R07.89 Other chest pain; B02.9 Zoster without complications; R61 Generalized hyperhidrosis; J45.909 Unspecified asthma, uncomplicated; E11.9 Type 2 diabetes mellitus without complications; Z79.4 Long term (current) use of insulin; E78.00 Pure hypercholesterolemia, unspecified; I50.9 Heart failure, unspecified

== ENCOUNTER 2025-06-26 06:46 | Outpatient (CLI) | payer OTHER ==
[~2025-06-26 06:46] MED LIST changes: +AMIODARONE HCL100 MG; +NORVASC2.5 M1 PO; +ZETIA10 MG
[2025-06-26 07:56] LABS: BASO % 0.5 % (0.1-1.2); EOS # 0.18 (0.04-0.54); EOS % 1.5 % (0.7-7.0); LYMPH # 3.36 (1.18-3.74); LYMPH % 28.4 % (19.3-53.1); MEAN PLATELET VOLUME 9.20 fl (9.4-12.4); MONO # 0.96 (0.24-0.82); MONO % 8.1 % (4.7-12.5); NEUT # 7.24 (1.56-6.13); NEUT % 61.2 % (34.0-71.1); RED CELL DISTRIBUTION WIDTH 13.5 % (11.6-14.4)
[2025-06-26 08:00] LABS: URINE APPEARANCE Turbid; URINE BILIRRUBIN Negative (NEGATIVE); URINE BLOOD Moderate; URINE COLOR Yellow; URINE GLUCOSE Negative (NEGATIVE); URINE KETONE Negative (NEGATIVE); URINE LEUKOCYTE Large; URINE NITRATE Negative; URINE PROTEIN 30 (NEGATIVE); URINE UROBILINOGEN 0.2 E.U./dl
[2025-06-26 08:04] LABS: URINE CAST 1.61 uL (0.0-1.40); URINE EPITHELIAL CELLS 47.0 uL (0.0-38.8); URINE RBC 9.3 uL (0.0-20.8)
[2025-06-26 08:07] LABS: URINE BACTERIA > 9821.5 uL (0.0-1933); URINE WBC > 5548.3 uL (0.0-23.2)
[2025-06-26 08:44] LABS: ALT/SGPT 26.0 U/L (12-78); AST/SGOT 20.0 U/L (15-37); BILIRUBIN TOTAL 0.37 mg/dL (0.3-1.2); BUN CREA RATIO 16.0 (7.0-25.0); CHOL HDL RATIO 3.8 (0-5.0); CREATININE SERUM 1.18 mg/dL (0.55-1.02); GFR 44.77; GLOBULINA 5.1 G/DL (2.4-3.5); GLUCOSE FASTING 165.0 mg/dL (65-100); HDL 57.0 mg/dl (40-60); LDL 117.0 mg/dl (0-130); OSMOLALITY SERUM 285.0 MOSM/KG (275-295); TSH 4.43 uIU/mL (0.358-3.74); VLDL 41.0 (0-39)
== END 2025-06-26 06:51 | disposition home or self-care (01) ==
LOC: LAB 06:46
PROVIDERS: ATTEND Internal Medicine
DX: D64.9 Anemia, unspecified (principal); E11.9 Type 2 diabetes mellitus without complications; E78.2 Mixed hyperlipidemia; N39.0 Urinary tract infection, site not specified; E03.8 Other specified hypothyroidism; N18.31 Chronic kidney disease, stage 3a; Z12.11 Encounter for screening for malignant neoplasm of colon; R19.5 Other fecal abnormalities; E55.9 Vitamin D deficiency, unspecified

== ENCOUNTER 2025-07-07 09:37 | Outpatient (CLI) | payer OTHER ==
[2025-07-07 13:07] LABS: ob POSITIVE (NEGATIVE)
== END 2025-07-07 09:38 | disposition home or self-care (01) ==
LOC: LAB 09:37
PROVIDERS: ATTEND Internal Medicine
DX: E78.2 Mixed hyperlipidemia (principal); E11.9 Type 2 diabetes mellitus without complications; E03.9 Hypothyroidism, unspecified; I11.9 Hypertensive heart disease without heart failure

== ENCOUNTER → 2025-07-29 06:53 | Outpatient (CLI) | payer OTHER ==
[2025-07-29 08:49] LABS: ALT/SGPT 14.0 U/L (12-78); AST/SGOT 12.0 U/L (15-37); BILIRUBIN TOTAL 0.38 mg/dL (0.3-1.2); BUN CREA RATIO 14.0 (7.0-25.0); CREATININE SERUM 0.86 mg/dL (0.55-1.02); GFR 64.5; GLOBULINA 4.6 G/DL (2.4-3.5); GLUCOSE FASTING 188.0 mg/dL (65-100); OSMOLALITY SERUM 288.0 MOSM/KG (275-295)
[2025-07-30 09:11] LABS: C PEPTIDE 2.9 ng/mL (1.1-4.4)
== END | disposition home or self-care (01) ==
LOC: LAB 06:53
PROVIDERS: ATTEND Internal Medicine Endocrinology, Diabetes & Metabolism
DX: E11.65 Type 2 diabetes mellitus with hyperglycemia (principal); E83.52 Hypercalcemia

== ENCOUNTER → 2025-08-29 09:04 | Outpatient (CLI) | payer OTHER ==
[2025-08-29 10:06] LABS: URINE APPEARANCE Turbid; URINE BILIRRUBIN Negative (NEGATIVE); URINE BLOOD Small; URINE COLOR Yellow; URINE GLUCOSE Negative (NEGATIVE); URINE KETONE Negative (NEGATIVE); URINE LEUKOCYTE Large; URINE NITRATE Negative; URINE UROBILINOGEN 0.2 E.U./dl
[2025-08-29 10:08] LABS: URINE BACTERIA 3279.5 uL (0.0-1933); URINE EPITHELIAL CELLS 53.2 uL (0.0-38.8); URINE RBC 20.8 uL (0.0-20.8)
[2025-08-29 10:09] LABS: URINE CAST 0.00 uL (0.0-1.40); URINE PROTEIN 300 (NEGATIVE); URINE WBC > 5548.3 uL (0.0-23.2)
== END | disposition home or self-care (01) ==
LOC: LAB 09:04
PROVIDERS: ATTEND Internal Medicine
DX: N39.0 Urinary tract infection, site not specified (principal)

== ENCOUNTER 2025-09-22 07:20 | Outpatient (CLI) | payer OTHER | END 2025-09-22 07:25 | disposition home or self-care (01) | LOC: TOM 07:20 | PROVIDERS: ATTEND Internal Medicine Endocrinology, Diabetes & Metabolism | DX: E21.3 Hyperparathyroidism, unspecified (principal) | CPT/HCPCS: 70491; Q9965 ==

== ENCOUNTER 2025-10-19 06:08 | Outpatient (CLI) | payer OTHER ==
[2025-10-19 07:10] LABS: BASO % 0.4 % (0.1-1.2); EOS # 0.29 (0.04-0.54); EOS % 2.8 % (0.7-7.0); LYMPH # 4.57 (1.18-3.74); LYMPH % 44.6 % (19.3-53.1); MEAN PLATELET VOLUME 9.50 fl (9.4-12.4); MONO # 0.86 (0.24-0.82); MONO % 8.4 % (4.7-12.5); NEUT # 4.45 (1.56-6.13); NEUT % 43.5 % (34.0-71.1); RED CELL DISTRIBUTION WIDTH 12.0 % (11.6-14.4)
[2025-10-19 09:03] LABS: ALT/SGPT 22.0 U/L (12-78); AST/SGOT 18.0 U/L (15-37); BILIRUBIN TOTAL 0.48 mg/dL (0.3-1.2); BUN CREA RATIO 24.0 (7.0-25.0); CHOL HDL RATIO 3.2 (0-5.0); CREATININE SERUM 0.89 mg/dL (0.55-1.02); GFR 62.0; GLOBULINA 4.2 G/DL (2.4-3.5); GLUCOSE FASTING 78.0 mg/dL (65-100); HDL 57.0 mg/dl (40-60); LDL 90.0 mg/dl (0-130); OSMOLALITY SERUM 291.0 MOSM/KG (275-295); VLDL 33.0 (0-39)
== END 2025-10-19 06:12 | disposition home or self-care (01) ==
LOC: LAB 06:08
PROVIDERS: ATTEND Internal Medicine Endocrinology, Diabetes & Metabolism
DX: E11.65 Type 2 diabetes mellitus with hyperglycemia (principal); N18.9 Chronic kidney disease, unspecified; E83.52 Hypercalcemia; E78.5 Hyperlipidemia, unspecified; E03.8 Other specified hypothyroidism; R80.8 Other proteinuria; I50.9 Heart failure, unspecified; I21.9 Acute myocardial infarction, unspecified